=== PATIENT | male | born 1980 | race Two or more races ===

== ENCOUNTER 2019-06-07 18:25 | Emergency (ER) | payer SELFPAY ==
--- NOTE | 2019-06-07 18:58 | EDM.PDOC ---
ED HPI GENERAL MEDICAL PROBLEM - General Chief Complaint: Genitourinary Problem Stated Complaint: UTI Time Seen by Provider: 06/07/19 18:52 Source of Information: Reports: Patient History Limitations: Reports: No Limitations - History of Present Illness INITIAL COMMENTS - FREE TEXT/NARRATIVE: HISTORY AND PHYSICAL: History of present illness: patient his a 38-year-old male presents to the ED with complaint of testicular swelling. He states it started 4 days ago. he states it is somewhat painful but he denies any pain with urination or hematuria. Denies injury or trauma to the area. Denies nausea, vomiting, abdominal pain. He states he is not sexually active and is not concerned for an STD. Review of systems: As per history of present illness and below otherwise all systems reviewed and negative. Past medical history: As per history of present illness and as reviewed below otherwise noncontributory. Surgical history: As per history of present illness and as reviewed below otherwise noncontributory. Social history: No reported history of drug or alcohol abuse. Family history: As per history of present illness and as reviewed below otherwise noncontributory. Physical exam: General: Patient sitting comfortably in no acute distress and nontoxic appearing HEENT: Atraumatic, normocephalic, pupils reactive, negative for conjunctival pallor or scleral icterus, mucous membranes moist, throat clear, neck supple, nontender, trachea midline. No meningeal signs. Lungs: Clear to auscultation, breath sounds equal bilaterally, chest nontender. Heart: S1S2, regular, negative for clicks, rubs, or overt murmur. Abdomen: Soft, nondistended, nontender. Negative for masses or hepatosplenomegaly. Negative for costovertebral tenderness. No rigidity, rebound , guarding. Pelvis: Stable nontender. Genitourinary: No notable swelling on my exam. No pain to palpation. Rectal: Deferred. Extremities: Atraumatic, negative for cords or calf pain. Neurovascular unremarkable. Neuro: Awake, alert, oriented. Cranial nerves II through XII unremarkable. Cerebellum unremarkable. Motor and sensory unremarkable throughout. Exam nonfocal. Notes: Diagnostics: UA, urine gonorrhea/chlamydia, Scrotal US Therapeutics: None Prescriptions: Levaquin Impression: Scrotal swelling, epididymo-orchitis Plan: 1. take antibiotic as instructed 2. Follow up with primary care provider 3. Return to ED as needed as discussed Definitive disposition and diagnosis as appropriate pending reevaluation and review of above. - Related Data Allergies Allergy/AdvReac Type Severity Reaction Status Date / Time No Known Allergies Allergy Verified 06/07/19 18:51 Home Meds: Home Meds levoFLOXacin [Levaquin] 500 mg PO DAILY #10 tab 06/07/19 [Rx] ED ROS GENERAL - Review of Systems Review Of Systems: ROS reveals no pertinent complaints other than HPI. ED EXAM, RENAL/ - Physical Exam Exam: See Below (see dictation) Course - Vital Signs Last Recorded V/S: Last Vital Signs Temp 97.2 F 06/07/19 18:48 Pulse 84 06/07/19 20:12 Resp 18 06/07/19 20:12 BP 139/92 H 06/07/19 20:12 Pulse Ox 97 06/07/19 20:12 - Orders/Labs/Meds Orders: Active Orders 24 hr Category Date Time Status Scrotal Duplex Ltd [US] Routine Exams 06/07/19 19:25 Taken CHLAMYDIA AND GONORRHEA BY [facility] Stat Lab 06/07/19 20:11 Ordered Labs: Laboratory Tests 06/07/19 Range/Units 18:50 Urine Color YELLOW Urine Appearance CLEAR Urine pH 6.0 (5.0-8.0) Ur Specific [place] 1.020 (1.001-1.035) Urine Protein NEGATIVE (NEGATIVE) mg/dL Urine Glucose (UA) NEGATIVE (NEGATIVE) mg/dL Urine Ketones NEGATIVE (NEGATIVE) mg/dL Urine Occult Blood NEGATIVE (NEGATIVE) Urine Nitrite NEGATIVE (NEGATIVE) Urine Bilirubin NEGATIVE (NEGATIVE) Urine Urobilinogen 0.2 (<2.0) EU/dL Ur Leukocyte Esterase NEGATIVE (NEGATIVE) Departure - Departure Time of Disposition: 20:49 Disposition: Home, Self-Care 01 Condition: Good Clinical Impression: Scrotal swelling, Epididymo-orchitis - Discharge Information Prescriptions: levoFLOXacin [Levaquin] 500 mg PO DAILY #10 tab Referrals: PCP,None [Primary Care Provider] - Forms: ED Department Discharge Additional Instructions: The following information is given to patients seen in the emergency department who are being discharged to home. This information is to outline your options for follow-up care. We provide all patients seen in our emergency department with a follow-up referral. The need for follow-up, as well as the timing and circumstances, are variable depending upon the specifics of your emergency department visit. If you don't have a primary care physician on staff, we will provide you with a referral. We always advise you to contact your personal physician following an emergency department visit to inform them of the circumstance of the visit and for follow-up with them and/or the need for any referrals to a consulting specialist. The emergency department will also refer you to a specialist when appropriate. This referral assures that you have the opportunity for follow-up care with a specialist. All of these measure are taken in an effort to provide you with optimal care, which includes your follow-up. Under all circumstances we always encourage you to contact your private physician who remains a resource for coordinating your care. When calling for follow-up care, please make the office aware that this follow-up is from your recent emergency room visit. If for any reason you are refused follow-up, please contact the [facility] Emergency Department at and asked to speak to the emergency department charge nurse. [facility] Primary Care [address] [place] [address] [place] [address] 1. take antibiotic as instructed 2. Follow up with primary care provider 3. Return to ED as needed as discussed - My Orders Last 24 Hours: My Active Orders 06/07/19 20:11 CHLAMYDIA AND GONORRHEA BY [facility] Stat - Assessment/Plan Last 24 Hours: My Active Orders 06/07/19 20:11 CHLAMYDIA AND GONORRHEA BY [facility] Stat
--- NOTE | 2019-06-07 20:44 | US ---
INDICATION: pain and swelling x 4 days Indication: Pain and swelling for 4 days. Technique: Scrotal ultrasound. 2D, color, and spectral Doppler interrogation was obtained. Color/spectral Doppler was performed to evaluate for testicular torsion. Comparison: None. Findings: Right testis measures 4.7 x 2.2 x 2.7 cm. No intratesticular mass. No evidence for testicular torsion. No scrotal wall thickening. Small significant hydrocele. Normal, low resistance arterial blood flow is preserved to the right testis on color/spectral Doppler. There is no scrotal wall thickening or epididymal mass. Left testis measures 4.8 x 2.8 x 2.4 cm. No intratesticular mass. No evidence for testicular torsion. Small left hydrocele. Normal, low resistance arterial blood flow is preserved to the left testis on color/spectral Doppler. There is no scrotal wall thickening or epididymal mass. Heterogeneity on grayscale imaging is seen within both testes. This is most evident in the right testis on image 19, series 1. Impression: 1. Testes are negative for intratesticular mass or evidence for testicular torsion. Heterogeneity on grayscale imaging within the testes, which is seen on image 19 of series 1, for example, is likely technical in nature. Short-term follow-up ultrasound, with cine imaging, is suggested to confirm this finding does not persist. 2. Small, bilateral anechoic hydroceles. 3. Normal, low resistance arterial blood flow is preserved bilaterally on color/spectral Doppler. Dictated by Oliverio Delgadillo MD @ 06/07/2019 8:42:19 PM Dictated by: Oliverio Delgadillo MD @ 06/07/2019 20:42:35 (Electronically Signed)
--- NOTE | 2019-06-09 17:25 | US ---
EXAM DATE: 06/07/19 PATIENT'S AGE: 38 Patient: MARIKA CORTEZ Facility: [facility] Site . Site : [id number] Study: US-Testicle Bilateral -06/07/2019 8:15:19 PM Ordering Physician: Urbano Paez Final Report: INDICATION: pain and swelling x 4 days Indication: Pain and swelling for 4 days. Technique: Scrotal ultrasound. 2D, color, and spectral Doppler interrogation was obtained. Color/spectral Doppler was performed to evaluate for testicular torsion. Comparison: None. Findings: Right testis measures 4.7 x 2.2 x 2.7 cm. No intratesticular mass. No evidence for testicular torsion. No scrotal wall thickening. Small significant hydrocele. Normal, low resistance arterial blood flow is preserved to the right testis on color/spectral Doppler. There is no scrotal wall thickening or epididymal mass. Left testis measures 4.8 x 2.8 x 2.4 cm. No intratesticular mass. No evidence for testicular torsion. Small left hydrocele. Normal, low resistance arterial blood flow is preserved to the left testis on color/spectral Doppler. There is no scrotal wall thickening or epididymal mass. Heterogeneity on grayscale imaging is seen within both testes. This is most evident in the right testis on image 19, series 1. Impression: 1. Testes are negative for intratesticular mass or evidence for testicular torsion. Heterogeneity on grayscale imaging within the testes, which is seen on image 19 of series 1, for example, is likely technical in nature. Short-term follow-up ultrasound, with cine imaging, is suggested to confirm this finding does not persist. 2. Small, bilateral anechoic hydroceles. 3. Normal, low resistance arterial blood flow is preserved bilaterally on color/ spectral Doppler. Dictated by Oliverio Delgadillo MD @ 06/07/2019 8:42:19 PM Dictated by: Oliverio Delgadillo MD @ 06/07/2019 20:42:35 Signed by: Oliverio Delgadillo MD @06/07/2019 8:42:35 PM (Electronic Signature) Report Signed by Proxy. [facility]ITAL[facility]anny
== END 2019-06-07 21:04 | disposition home or self-care (01) ==
LOC: MW.ED 18:25 → EDSEX 18:25 → MW.ED 21:04
DX: N45.3 Epididymo-orchitis (principal)
CPT/HCPCS: 76870; 76870-26; 81003; 87491; 87591; 93976; 93976-26; 99284-25